=== PATIENT | male | born 1960 | race Caucasian/White ===

== ENCOUNTER 2019-09-15 16:46 | Emergency (ER) | payer OTHER ==
[~2019-09-15] VITALS: Ht 182.9 cm; Wt 115.7 kg
[2019-09-15 16:47] VITALS: BP 179/96
[2019-09-15] MEDS ORDERED: ASPIR-LOW81 MG PO (16:49)
[2019-09-15] MEDS ORDERED: PAIN RELIEF325 MG PO (16:49)
[2019-09-15] MEDS ORDERED: ULTRAM 50MG TAB50 MG PO (18:38)
== END 2019-09-15 18:42 | disposition home or self-care (01) ==
LOC: ER 16:46
DX: M25.561 Pain in right knee (principal); E78.00 Pure hypercholesterolemia, unspecified; F90.9 Attention-deficit hyperactivity disorder, unspecified type